=== PATIENT | female | born 1985 | race Caucasian/White ===

== ENCOUNTER 2018-03-20 02:15 | Emergency (ER) | payer OTHER ==
[2018-03-20 06:21] LABS: BASO % 0.3 % (0.0-1.0); EOS # 0.1 10^3/uL (0.0-0.50); EOS % 0.8 % (0.0-3.0); HEMATOCRIT 38.8 % (36.0-47.0); HEMOGLOBIN 12.9 g/dl (12.0-15.5); IMMATURE GRANULOCYTE % 0.3 % (0-3.0); LYMPH # 1.4 10^3/uL (1.5-4.5); LYMPH % 18.2 % (24.0-44.0); MEAN CORPUSCULAR HEMOGLOBIN 30.9 pg (27.0-33.0); MEAN CORPUSCULAR HGB CONC 33.2 g/dl (32.0-36.5); MEAN CORPUSCULAR VOLUME 92.8 fl (80.0-96.0); MONO # 0.4 10^3/uL (0.0-0.8); MONO % 5.6 % (0.0-5.0); NEUTROPHILS # 5.9 10^3/uL (1.8-7.7); NEUTROPHILS % 74.8 % (36.0-66.0); PLATELET COUNT, AUTOMATED 153 10^3/uL (150-450); RED BLOOD COUNT 4.18 10^6/uL (4.00-5.40); WHITE BLOOD COUNT 7.9 10^3/uL (4.0-10.0)
[2018-03-20] MEDS ORDERED: ISOVUE-370 76% 100ML VIAL (Q9967) As Ordered (06:29)
[2018-03-20 06:31] LABS: CONTROL LINE HCG INT CTR LINE PRESENT; HCG, SERUM QUALITATIVE NEGATIVE (NEGATIVE)
[2018-03-20 06:38] LABS: ALBUMIN 3.2 GM/DL (3.2-5.2); ALBUMIN/GLOBULIN RATIO 1.19 (1.00-1.93); ALKALINE PHOSPHATASE 65 U/L (45-117); ALT/SGPT 30 U/L (12-78); ANION GAP 9 MEQ/L (8-16); AST/SGOT 10 U/L (7-37); BILIRUBIN,DIRECT 0.2 MG/DL (0.0-0.2); BILIRUBIN,TOTAL 0.5 MG/DL (0.2-1.0); BLOOD UREA NITROGEN 13 MG/DL (7-18); CALCIUM LEVEL 7.9 MG/DL (8.5-10.1); CARBON DIOXIDE LEVEL 25 MEQ/L (21-32); CHLORIDE LEVEL 114 MEQ/L (98-107); CREATININE FOR GFR 0.59 MG/DL (0.55-1.30); GLOMERULAR FILTRATION RATE > 60.0 (>60); GLUCOSE, FASTING 90 MG/DL (70-100); LIPASE 70 U/L (73-393); POTASSIUM SERUM 3.6 MEQ/L (3.5-5.1); SODIUM LEVEL 148 MEQ/L (136-145); TOTAL PROTEIN 5.9 GM/DL (6.4-8.2)
== END 2018-03-20 08:38 | disposition home or self-care (01) ==
LOC: M ED 02:15
DX: T74.11XA Adult physical abuse, confirmed, initial encounter (principal); Y04.8XXA Assault by other bodily force, initial encounter; Y07.01 Husband, perpetrator of maltreatment and neglect; Y92.018 Other place in single-family (private) house as the place of occurrence of the external cause; Z91.048 Other nonmedicinal substance allergy status
CPT/HCPCS: Q9967

== ENCOUNTER 2019-08-30 15:41 | Outpatient (CLI) | payer OTHER, SELFPAY ==
[~2019-08-30] VITALS: Ht 167.6 cm; Wt 111.0 kg
[2019-08-30 16:07] VITALS: BP 131/70
[2019-08-30] MEDS ORDERED: IRON65TA2 PO (16:13)
[2019-08-30] MEDS ORDERED: AZIT500T5 PO (16:13)
[2019-08-30] MEDS ORDERED: PRENTAB9 PO ×2 (16:13)
[2019-08-30] MEDS ORDERED: COLA100C5 PO (16:13)
[2019-08-30] MEDS ORDERED: MAPA500T2 PO (16:13)
[2019-08-30] MEDS ORDERED: BETAMETHASONE SOLUSPAN 6MG/ML INJ 5ML (J0702) IM ONE (16:15)
--- NOTE | 2019-08-30 16:49 | IPNPDOC ---
Text Note Date of Service The patient was seen on 08/30/19. NOTE S: -Ms. Hutson is a 34yo at 36+5wks gestation with di-di twins who presents to LND triage for second betamethasone injection. She was seen in the clinic yesterday, [id number], for her APFT appointment and received her first dose then and was evaluated by the OB. -Today she reports +FM, intermittent mild contractions; she denies LOF/VB. -She is scheduled for COB on [id number] in the clinic O: VSS Doptones 140s for A and B A/P: -Normally progressing -Betamethasone complete with today's administration; pt tolerated well -appropriate 3rd trimester precautions reviewed -f/u [id number] or sooner PRN VS,Fishbone, I+O VS, Fishbone, I+O Vital Signs Date Time Temp Pulse Resp B/P (MAP) Pulse Ox O2 Delivery O2 Flow Rate FiO2 08/30/19 16:07 97.8 90 18 131/70 (90) RUBY CORREA CNM Aug 30, 2019 16:49
[2019-09-01] MEDS ORDERED: VITA500T PO (15:10)
[2019-09-01] MEDS ORDERED: PRED20TA PO (15:10)
== END 2019-08-30 16:49 | disposition home or self-care (01) ==
LOC: M LDO 15:41
PROVIDERS: ATTEND Registered Nurse Maternal Newborn
DX: O60.03 Preterm labor without delivery, third trimester (principal); O30.043 Twin pregnancy, dichorionic/diamniotic, third trimester; Z3A.36 36 weeks gestation of pregnancy
CPT/HCPCS: 59025; 96372; G0378; G0463; J0702

== ENCOUNTER 2019-09-02 16:01 | Outpatient (CLI) | payer SELFPAY ==
[~2019-09-02] VITALS: Ht 167.6 cm; Wt 114.1 kg
[~2019-09-02 16:01] MED LIST: AZIT500T5 PO; COLA100C5 PO; IRON65TA2 PO; MAPA500T2 PO; PRED20TA PO; PRENTAB9 PO; VITA500T PO
[2019-09-02 16:37] VITALS: BP 105/61
[2019-09-02] MEDS ORDERED: NON-325T5 PO (16:49)
[2019-09-02] MEDS ORDERED: TUMS500C PO (16:49)
[2019-09-02 17:35] LABS: HEMATOCRIT 33.6 % (36.0-47.0); HEMOGLOBIN 11.1 g/dl (12.0-15.5); MEAN CORPUSCULAR HEMOGLOBIN 32.3 pg (27.0-33.0); MEAN CORPUSCULAR VOLUME 97.7 fl (80.0-96.0); PLATELET COUNT, AUTOMATED 115 10^3/uL (150-450); RED BLOOD COUNT 3.44 10^6/uL (4.00-5.40); WHITE BLOOD COUNT 9.1 10^3/uL (4.0-10.0)
[2019-09-02 18:14] VITALS: BP 118/67
--- NOTE | 2019-09-03 07:42 | HPE ---
DATE OF ADMISSION: 09/02/2019 33-year-old, 5, para 2, abortus 2, last menstrual period (LMP) 12/16/2018, estimated date of confinement (EDC) 09/22/2019. She has a repeat section booked 09/11/2019. She is at 37 weeks of gestation with history contractions. No vaginal bleeding or loss of membranes or fluid. RISK FACTOR: She has had a (C) section times two, has Di/Di twins, a body mass index (BMI) of 29.9, gestational diabetes mellitus A1 (GDMA1), and thrombocytopenia presently on steroids 20 mg of prednisone a day. PAST HISTORY: In 2008, at 39 weeks, section elective, male, 7 pounds 9 ounces, persistent occiput posterior. 2011, at 39 weeks, section repeat, GDMA2, male, 7 pounds 12 ounces, multiple adhesions, and she has had two spontaneous abortions. Labs are O positive, HIV negative, RPR negative, rubella immune. Varicella immune. Pap is atypical squamous cells of undetermined significance (ASCUS), HPV negative. Urine is negative. Gonorrhea and chlamydia are negative. 1-hour glucose early was 118. 28 week GTT was 146. 3 hour GTT was not done. She has been checking her own blood sugars and she is group B streptococcus (GBS) negative. Blood pressure 118/67, respirations 18, pulse 77, temperature 99.1. Urine is 1.010, pH 7 and negative. Hemoglobin 11.1, hematocrit 37.6 and platelets are 115. On examination, symphysis fundus height is 44, vertex presenting twin A on the right, twin B on the left as vertex. She has peau d'orange in her abdomen because of the dependent edema. The incisional site is clean and dry and nontender. Her cervix is posterior, closed, ballotable, no discharge, no bleeding, thick. The patient is having uterine irritability secondary to Di/Di twins, category one strip times two and she was discharged with precautions. Scheduled to see Dr. Richardson next week.
== END 2019-09-02 18:35 | disposition home or self-care (01) ==
LOC: M LDO 16:01
PROVIDERS: ATTEND Obstetrics & Gynecology
DX: O26.893 Other specified pregnancy related conditions, third trimester (principal); O30.043 Twin pregnancy, dichorionic/diamniotic, third trimester; Z3A.37 37 weeks gestation of pregnancy
CPT/HCPCS: 36415; 59025; 85027; G0378; G0463

== ENCOUNTER 2019-09-08 06:52 | Inpatient (IN) | payer OTHER, SELFPAY ==
[~2019-09-08] VITALS: Ht 167.6 cm; Wt 112.4 kg
[~2019-09-08 06:52] MED LIST changes: +NON-325T5 PO; +TUMS500C PO
[2019-09-08] MEDS ORDERED: MORPHINE PRES-FREE INJ 10 MG/10 ML VIAL (J2274) As Ordered ONE (07:08)
[2019-09-08] MEDS ORDERED: OXYTOCIN INJ 10 UNITS/ML VIAL (J2590) As Ordered ONE (07:11)
[2019-09-08] MEDS ORDERED: ceFAZolin SOD 2 GM in IV 1 EA IV ONE (07:15)
[2019-09-08] MEDS ORDERED: LR 1,000 ML IV SCH (07:15)
[2019-09-08] MEDS ORDERED: BICITRA 30ML SOLN UDC As Ordered ONE (07:41)
[2019-09-08] MEDS ORDERED: BICITRA 30ML SOLN UDC PO ONE (08:00)
[2019-09-08] MEDS ORDERED: AZITHROMYCIN INJ 500 MG, VIAL MATE ADAPTER 1 EACH in D5W 250 ML IV ONE (08:00)
[2019-09-08 08:12] LABS: HEMATOCRIT 36.7 % (36.0-47.0); HEMOGLOBIN 11.9 g/dl (12.0-15.5); MEAN CORPUSCULAR HEMOGLOBIN 31.9 pg (27.0-33.0); MEAN CORPUSCULAR HGB CONC 32.4 g/dl (32.0-36.5); MEAN CORPUSCULAR VOLUME 98.4 fl (80.0-96.0); RED BLOOD COUNT 3.73 10^6/uL (4.00-5.40); WHITE BLOOD COUNT 9.4 10^3/uL (4.0-10.0)
[2019-09-08 08:17] LABS: PLATELET COUNT, AUTOMATED 97 10^3/uL (150-450)
[2019-09-08] MEDS ORDERED: METOCLOPRAMIDE INJ 10MG/2ML VIAL (J2765) IV PRN (08:52)
[2019-09-08] MEDS ORDERED: ONDANSETRON 4MG/2ML VIAL (J2405) IV PRN ×2 (08:52→10:30)
[2019-09-08] MEDS ORDERED: NALOXONE INJ 0.4 MG/1 ML VIAL (J2310) IV PRN ×2 (08:52)
[2019-09-08] MEDS ORDERED: diphenhydrAMINE INJ 50MG/ML VIAL (J1200) IV PRN (08:52)
[2019-09-08] MEDS ORDERED: NALBUPHINE HCL 10 MG/ML AMP (J2300) IV PRN ×2 (08:52→10:30)
[2019-09-08] MEDS: PRENATAL VITAMINS CHEWABLE TABLET PO SCH (09:00)
[2019-09-08] MEDS ORDERED: ePHEDrine SULFATE 25 MG/5 ML(5MG/ML) SYRINGE As Ordered ONE (09:01)
[2019-09-08] MEDS ORDERED: ONDANSETRON 4MG/2ML VIAL (J2405) As Ordered ONE (10:14)
[2019-09-08] MEDS ORDERED: PROMETHAZINE 25 MG TAB PO PRN (10:15)
[2019-09-08] MEDS ORDERED: MEASLES,MUMPS,RUBELLA VACCINE INJ (MMR-II) (90707) SC SCH (10:15)
[2019-09-08] MEDS ORDERED: PERCOCET 5MG/325MG TAB PO PRN (10:15)
[2019-09-08] MEDS ORDERED: RHOGAM 300 MCG (1500 IU) INJ (J2790) IM SCH (10:15)
[2019-09-08] MEDS ORDERED: OXYTOCIN 30 UNITS IN 0.9% NaCl 500ML IV BAG (J2590) As Ordered ONE (10:27)
[2019-09-08] MEDS ORDERED: KETOROLAC 30 MG/ML VIAL (J1885) IV PRN (10:30)
[2019-09-08] MEDS ORDERED: MEPERIDINE INJ 25 MG/ML VIAL (J2175) IV PRN (10:30)
[2019-09-08] MEDS ORDERED: fentaNYL 100 MCG/2 ML INJECTION (J3010) IV PRN (10:30)
[2019-09-08] MEDS ORDERED: oxyCODONE 5MG TAB PO PRN (10:30)
[2019-09-08] MEDS ORDERED: miSOPROStol 200 MCG TAB (S0191) As Ordered ONE ×4 (10:31→10:34)
[2019-09-08] MEDS ORDERED: OXYTOCIN DRIP 30 UNITS in IV 1 EA IV SCH (10:37)
--- NOTE | 2019-09-08 10:41 | IPNPDOC ---
Text Note Date of Service The patient was seen on 09/08/19. NOTE PACU Note I was asked to come juana Bustillo for some extra vaginal bleeding in PACU. She received a dose of methergine in the OR for prophylaxis since this was a twin delivery and she is currently receiving first bag of IV pitocin. Patient conversant, not pale Vitals wnl Bimanual exam revealed some clots within WON/vagina that were removed and massage was performed (patient still comfortable from spinal). Fundus firm at u- 2cm and no bleeding after exam was completed. 800mcg cytotec placed in the rectum. EBL in OR was 500ml. Maybe an extra 100ml after Will give 1 more bag of 30u pitocin IV Continue to closely monitor Dr. Cici Vasquez MD VS,Ashu, I+O VS, Ashu, I+O Laboratory Tests 09/08/19 07:41 Cici Vasquez MD Sep 08, 2019 10:41
[2019-09-08] MEDS ORDERED: miSOPROStol 200 MCG TAB (S0191) PR ONE (10:45)
[2019-09-08] MEDS ORDERED: SLF 3 ML SYR IV PRN (11:30)
[2019-09-08] MEDS: LR 1,000 ML IV SCH ×2 (11:43→17:52)
[2019-09-08 12:30] VITALS: BP 141/82
[2019-09-08] MEDS: KETOROLAC 30 MG/ML VIAL (J1885) IV SCH ×3 (12:45→23:44)
[2019-09-08 13:00] VITALS: BP 131/63
[2019-09-08 14:00] VITALS: BP 114/56
[2019-09-08 15:00] VITALS: BP 133/73
[2019-09-08] MEDS: SLF 3 ML SYR IV SCH ×2 (15:17→22:00)
[2019-09-08] MEDS ORDERED: LR 1,000 ML IV ONE (17:30)
[2019-09-08] MEDS: METHYLERGONOVINE MALEATE 0.2 MG TAB PO SCH ×2 (17:49→23:44)
[2019-09-08 18:00] VITALS: BP 121/64
--- NOTE | 2019-09-08 19:13 | RO ---
DATE OF PROCEDURE: 09/08/2019 PREPROCEDURE DIAGNOSES: 1. Di/Di twin gestation. 2. History of section times two and no desire for trial of labor after (TOLAC). 3. Obesity. POSTPROCEDURE DIAGNOSES: 1. Di/Di twin gestation. 2. History of section times two and no desire for trial of labor after (TOLAC). 3. Obesity. PROCEDURE: Repeat low transverse section. SURGEON: Dr. Gerry Richardson PAIL TESTER: Dr. Cici Vasquez ANESTHESIA: Spinal. FLUIDS: 1100 mL lactated Ringer's (LR). URINE OUTPUT: 100 mL. ESTIMATED BLOOD LOSS: 500 mL. COMPLICATIONS: None. ANTIBIOTICS: 2 grams of Ancef and 500 mg of azithromycin. OPERATIVE FINDINGS: Di/Di twin gestation, clear amniotic fluid in both sacs. Baby A cephalic presenting female that weighed 8 pounds 10 ounces. Baby B cephalic presenting male that weighed 8 pounds 0 ounces. Uterus was normal. Ovaries normal. Fallopian tubes normal bilaterally. DETAILED PROCEDURE DESCRIPTION: The risks, benefits, indications, and alternatives of the procedure were reviewed with the patient and informed consent was obtained. The patient was taken to the operating room where spinal anesthesia was obtained without difficulty. The patient was then prepped and draped in the usual sterile fashion in the dorsal supine position with a leftward tilt. A surgical time-out was performed in which the patient's identify and planned procedure were verified with the operative team. A Pfannenstiel skin incision was then made with a scalpel and carried through to the underlying layer of fascia using the Bovie electrocautery. The fascia was incised in the midline, and the incision was extended laterally with Reyna scissors. The superior aspect of the fascial incision was grasped with Nicolasa clamps, elevated, and the underlying rectus muscles were dissected off with a scalpel. Attention was then turned to the inferior aspect of this incision, which in a similar fashion, was grasped, tented up with Nicolasa clamps, and the rectus muscles were dissected off with Reyna scissors. The rectus muscles were then at the midline. The peritoneum was identified and entered digitally. The peritoneal incision was then extended horizontally and superiorly and the bladder was clearly identified. A Mobius self-containing retractor was then inserted into the abdomen as a means for exposure. The vesicouterine peritoneum was identified and entered sharply with a scalpel. This incision was then extended laterally, and a bladder flap was created digitally. Next, the lower uterine segment was incised in a transverse fashion with the scalpel. The uterine incision was then extended manually. Baby A's amniotic sac was artificially ruptured and this was productive of clear fluid. The was in cephalic presentation and the head was delivered without difficulty followed easily by the remainder of the body. The 's nose and mouth were suctioned with a bulb syringe and the cord was doubly clamped and cut. The was then handed off to the awaiting pediatricians. Next, Baby B's amniotic sac was identified and artificially ruptured, which was productive of clear fluid. Baby B was also found to be in cephalic presentation. Baby B was then delivered atraumatically through the hysterotomy without difficulty, followed easily by the remainder of the body. Baby B's nose and mouth were suctioned with a bulb syringe and the cord was doubly clamped and cut. Baby B was then handed off to the awaiting pediatricians. The entire placental complex, which was comprised of both placentas fused together, was then removed manually. The uterus was then exteriorized and cleared of all clots and debris. 0.2 mg of intramuscular (IM) Methergine was given prophylactically due to the extremely large uterus and risk for atony. The uterine incision was then repaired with #0 Monocryl suture in a running locked fashion. A second layer of #0 Monocryl was then used to imbricate the hysterotomy in a vertical fashion. Inspection revealed excellent hemostasis. The posterior cul-de-sac was then irrigated. The uterus was then returned to the abdomen. The hysterotomy was again inspected and found to be hemostatic. The paracolic gutters were then irrigated and cleared of all clots and debris. The Mobius self-containing retractor was then removed from the abdomen. The peritoneum was then closed with 3-0 vicryl suture. The fascia was closed with #0 Vicryl suture in a running fashion. The subcutaneous fat was closed with #3-0 Vicryl suture in a running fashion. The skin was closed with #4-0 Monocryl suture in a subcuticular fashion. The incision was then dressed with Steri-Strips and a pressure dressing was applied. At the completion of the case, a bimanual exam was performed which revealed good uterine tone and minimal vaginal bleeding. The patient tolerated the procedure well. Sponge, lap, instrument, and needle counts were correct times three. The patient was taken to the recovery room in stable condition. DENISE
[2019-09-08] MEDS: DOCUSATE SODIUM 100 MG CAP PO PRN (20:54)
[2019-09-08 22:11] VITALS: BP 123/61
[2019-09-09 02:15] VITALS: BP 104/55
[2019-09-09] MEDS: LR 1,000 ML IV SCH (02:30)
[2019-09-09] MEDS: METHYLERGONOVINE MALEATE 0.2 MG TAB PO SCH ×2 (05:43→12:31)
[2019-09-09] MEDS: KETOROLAC 30 MG/ML VIAL (J1885) IV SCH (06:20)
[2019-09-09] MEDS: SLF 3 ML SYR IV SCH ×3 (06:21→22:05)
[2019-09-09 06:46] VITALS: BP 115/60
[2019-09-09 07:09] LABS: HEMATOCRIT 32.1 % (36.0-47.0); HEMOGLOBIN 10.5 g/dl (12.0-15.5); MEAN CORPUSCULAR HEMOGLOBIN 32.2 pg (27.0-33.0); MEAN CORPUSCULAR HGB CONC 32.7 g/dl (32.0-36.5); MEAN CORPUSCULAR VOLUME 98.5 fl (80.0-96.0); RED BLOOD COUNT 3.26 10^6/uL (4.00-5.40); WHITE BLOOD COUNT 9.7 10^3/uL (4.0-10.0)
[2019-09-09 07:26] LABS: PLATELET COUNT, AUTOMATED 71 10^3/uL (150-450)
--- NOTE | 2019-09-09 09:25 | IPNPDOC ---
Progress Note Date of Service: Sep 09, 2019 Day#: 1 Progress Note POD/PPD 1 SUBJECT: Iwona is a 34yo [id number] s/p uncomplicated RLTCS on Sep for hx of 2 prior cesareans with di-di twins at 37w6d, doing well post-op day #1. She has been ambulating without lightheadedness, had heredia catheter removed this morning with due to void at 1030 and has been tolerating crackers so far without nausea/vomiting. Breast feeding without issue. Reports lochia is like a normal period. She denies f/c/CP/SOB. She has a slight cough from viral URI that she had when admitted, no worsening. OBJECTIVE: VITAL SIGNS: Within normal limits, afebrile. Alert and oriented times three. Abdomen: Fundus firm at U-2. Soft, appropriately tender to palpation with no rebound/guarding. Pfannenstiel incision has clean/dry dressing overlying. Extremities: no pain with palpation of calves UOP >50ml/hr Labs: admission H/H: 11.9/36.7, plt 97k post-op H/H 10.5/32.1, plt 71k ASSESSMENT: Iwona is a 34yo [id number] s/p uncomplicated RLTCS on Sep for hx of 2 prior cesareans with di-di twins at 37w6d, doing well post-op day #1. Vitals within normal limits, afebrile, hemodynamically stable with no evidence of infection. PLAN: 1. Routine /post-op care 2. Toradol (x24hr then ibuprofen) and percocet for pain. 3. Regular diet 4. Due to void by 1030 this morning 5. Ok to shower today and take off outer bandage 6. SCDs while in bed, encourage use of IS 7. Encourage breast feeding and ambulation. 8. Abdominal binder ordered 9. Repeat CBC tomorrow morning. If plt still downtrending, consider stopping ibuprofen and using alternate pain management. Dr. Cici Vasquez MD VS, I&O, 24H, Ashu Vital Signs/I&O Vital Signs Date Time Temp Pulse Resp B/P (MAP) Pulse Ox O2 Delivery O2 Flow Rate FiO2 09/09/19 06:46 98.2 73 17 115/60 (78) 97 1/7/20 02:15 Room Air I&O- Last 24 Hours up to 6 AM 09/09/19 06:00 Intake Total 6929 ml Output Total 3800 ml Balance 3129 ml Laboratory Data 24H LABS Laboratory Tests 2 09/09/19 06:48: Nucleated Red Blood Cells % (auto) 0.0 CBC/BMP Laboratory Tests 09/09/19 06:48 Cici Vasquez MD Sep 09, 2019 09:25
[2019-09-09] MEDS: PRENATAL VITAMINS CHEWABLE TABLET PO SCH (10:07)
[2019-09-09 10:25] VITALS: BP 131/76
[2019-09-09] MEDS ORDERED: IBUPROFEN 800 MG TAB PO SCH (14:00)
[2019-09-09 14:28] VITALS: BP 133/76
[2019-09-09 18:24] VITALS: BP 129/62
[2019-09-09] MEDS: DOCUSATE SODIUM 100 MG CAP PO PRN (20:10)
[2019-09-09 22:07] VITALS: BP 140/73
[2019-09-09] MEDS: PERCOCET 5MG/325MG TAB PO PRN (23:41)
[2019-09-10 03:14] VITALS: BP 135/69
[2019-09-10 05:56] VITALS: BP 132/81
[2019-09-10] MEDS: SLF 3 ML SYR IV SCH (06:25)
[2019-09-10 06:50] LABS: HEMATOCRIT 34.7 % (36.0-47.0); HEMOGLOBIN 11.1 g/dl (12.0-15.5); MEAN CORPUSCULAR HEMOGLOBIN 32.3 pg (27.0-33.0); MEAN CORPUSCULAR VOLUME 100.9 fl (80.0-96.0); RED BLOOD COUNT 3.44 10^6/uL (4.00-5.40); WHITE BLOOD COUNT 10.3 10^3/uL (4.0-10.0)
[2019-09-10 06:51] LABS: PLATELET COUNT, AUTOMATED 84 10^3/uL (150-450)
[2019-09-10] MEDS: PRENATAL VITAMINS CHEWABLE TABLET PO SCH (08:03)
[2019-09-10] MEDS: PERCOCET 5MG/325MG TAB PO PRN ×2 (08:04→12:40)
--- NOTE | 2019-09-10 08:33 | IPN ---
DATE: 09/10/2018 This lady is a 34 old, 3, para 4, who had a repeat section for di-di twins at 37 and 6 weeks of gestation. Risk factors is she has thrombocytopenia and she had an atonic uterus post section. On review today, her platelets have come up to 84. She originally had a platelet count of 97.0. Her hemoglobin on admission was 11.9, hematocrit 36.7. Her day two hemoglobin is 11.1 and hematocrit 34.7. Her blood pressure today is 132/81, respirations 16, pulse 81, and temperature 99.0. She is presently not on steroids and her platelets have spontaneously elevated to almost levels that she had pre- section. She is not bleeding at the present time. Uterus is two below. Lochia is moderate. Four quadrant bowel sounds are noted. Her medication list includes ibuprofen and probably removing ibuprofen from her profile list would be appropriate and use an alternative medications for pain control. She is breast-feeding well today and we will await the finalized repeat CBC with platelets before making decision regarding discharge and/or a consultation with hematology.
[2019-09-10 10:35] VITALS: BP 123/81
[2019-09-10] MEDS ORDERED: PERCOCET PO (11:28)
--- NOTE | 2019-09-11 15:09 | IPN ---
DATE OF SERVICE: 09/09/2019 This patient has requested circumcision of their male . After discussing risks and benefits of circumcision the medical and nonmedical indications, penile block and aftercare expressed understanding of penile block and aftercare and bleeding, signed the consent form. All questions were answered. 20-minute discussion. We await the clearance by the six pack loader operator.
== END 2019-09-10 13:45 | disposition home or self-care (01) | DRG 772 ==
LOC: M LDI 06:52 → M OBS 12:22
PROVIDERS: ADMIT Obstetrics & Gynecology; ATTEND Obstetrics & Gynecology
PROC: 10D00Z1 Extraction of Products of Conception, Low, Open Approach (ICD-10-PCS; principal; 2019-09-08 07:30)
DX: O34.211 Maternal care for low transverse scar from previous cesarean delivery (principal); O99.13 Other diseases of the blood and blood-forming organs and certain disorders involving the immune mechanism complicating the puerperium; Z3A.37 37 weeks gestation of pregnancy; Z37.2 Twins, both liveborn; O30.043 Twin pregnancy, dichorionic/diamniotic, third trimester; O99.214 Obesity complicating childbirth; E66.9 Obesity, unspecified; D69.6 Thrombocytopenia, unspecified; O62.2 Other uterine inertia

== ENCOUNTER → 2019-09-25 | Outpatient (CLI) | payer OTHER ==
[~2019-09-25] MED LIST changes: +PERCOCET PO
[2019-09-25 12:54] LABS: HEMATOCRIT 42.2 % (36.0-47.0); HEMOGLOBIN 13.5 g/dl (12.0-15.5); MEAN CORPUSCULAR HEMOGLOBIN 31.3 pg (27.0-33.0); MEAN CORPUSCULAR VOLUME 97.9 fl (80.0-96.0); PLATELET COUNT, AUTOMATED 167 10^3/uL (150-450); RED BLOOD COUNT 4.31 10^6/uL (4.00-5.40); WHITE BLOOD COUNT 7.3 10^3/uL (4.0-10.0)
[2019-09-25 13:28] LABS: ALBUMIN 3.5 GM/DL (3.2-5.2); ALT/SGPT 19 U/L (12-78); BILIRUBIN,TOTAL 0.8 MG/DL (0.2-1.0); BLOOD UREA NITROGEN 18 MG/DL (7-18); CALCIUM LEVEL 8.6 MG/DL (8.5-10.1); CARBON DIOXIDE LEVEL 24 MEQ/L (21-32); CHLORIDE LEVEL 109 MEQ/L (98-107); CREATININE FOR GFR 0.68 MG/DL (0.55-1.30); GLOMERULAR FILTRATION RATE > 60.0 (>60); GLUCOSE, FASTING 67 MG/DL (70-100); POTASSIUM SERUM 4.1 MEQ/L (3.5-5.1); SODIUM LEVEL 141 MEQ/L (136-145); TOTAL PROTEIN 6.8 GM/DL (6.4-8.2)
== END ==
LOC: M LAB 11:53
PROVIDERS: ATTEND Obstetrics & Gynecology
DX: Z13.89 Encounter for screening for other disorder (principal)

== ENCOUNTER 2020-12-19 17:24 | Inpatient (IN) | payer OTHER ==
[~2020-12-19] VITALS: Ht 167.6 cm; Wt 117.3 kg
[~2020-12-19 17:24] MED LIST changes: +ACET32TAB PO; +CLAR10CA3 PO; -NON-325T5 PO; +VITA-243 PO; -VITA500T PO
--- NOTE | 2020-12-19 17:39 | HPEPDOC ---
Obstetrical History & Physical General Date of Admission History of Present Illness Ms. Hutson is a 35yo at 39+3 with history of CD x3 presenting to triage with contractions, she was also noted to have mild range blood pressures. She desires repeat . Denied VB, LOF, decreased FM. Denied n/v/d, cp, sob, lee, visual changes, f/c, urinary sx. Antepartum Course Pre- weight (lbs.): 237 Admission Weight (lbs.): 253 Change in Weight (lbs.): 16 Past Medical History Past Obstetrical History : Past Obstetrical History: Multigravida (G1 2008 PLTCD 39wk failure to progress. G2 2011 RCD 39wk. G3 2019 RCD twins gestational thrombocytopenia. + SAB x3) Past Medical History Medical History obesity Surgical History: section (x3), Gallbladder Social History Marital Status: Family situation: Spouse/partner home * Smoker: non-smoker Alcohol: Denies Drugs: denies Imunizations Tdap status: current Influenza Status: declined Allergies Coded Allergies: Cat Dander (Verified Allergy, Intermediate, 12/14/20) NASAL CONGESTION nickel (Verified Allergy, Intermediate, RASH, 12/14/20) SKIN BREAKDOWN gluten (Verified Adverse Reaction, Mild, INTOLERANCE, 12/14/20) RASH Medications Scheduled Docusate Sodium (Colace) 100 Mg Capsule, 100 MG PO BID No.137/Iron/Folic Acd ( Vitamin Tablet) 1 Each Tablet, 1 TAB PO TID Scheduled PRN Acetaminophen (Acetaminophen) 325 Mg Tablet, 1-2 TABS PO Q6HP PRN for DISCOMFORT Calcium Carbonate (Antacid) 200 Mg Tab.chew, 500 MG PO PRN PRN for HEARTBURN/INDIGESTION Loratadine (Claritin) 10 Mg Capsule, 10 MG PO DAILYPRN PRN for CONGESTION Physical Examination Physical Examination GENERAL: Alert and oriented times three. BREAST: . ABDOMEN: Gravid and non-tender to touch. FETUS: Is vertex (VTX) by sterile vaginal examination (SVE), fetus is vertex (VTX) by Rahat. HEART RATE: Regular rate and rhythm. LUNGS: Clear to auscultation (CTA). EXTREMITIES: No edema. No clonus. Deep tendon reflexes (DTRs) + . Laboratory Data Urine Culture: No Growth Pertinent Laboratoy Data Blood Type: O+ RBC Antibody Screen: Negative HIV: Negative Hepatitis B: Negative Rapid Plasma Reagin: Nonreactive Rubella: Immune Varicella: Immune Chlamydia/Gonorrhea: Negative Group B Streptococcus: Negative Quad Screen Test: Negative (cfDNA) Anatomy Ultrasound Placenta Location: Anterior Normal Anatomy: Yes Vaginal Examination Dilation: Fingertip Station: -3 Cervical Consistency: Firm Cervical Position: Posterior Presentation: Cephalic presentation Assessment Heart Rate (FHR): 130 Variability: Moderate Accelerations: Positive Tocometer Contractions: Yes Frequency: irregular Multi-drug resistant Organism: No history of MDRO Assessment/Plan Assessment Ms. Hutson is a 35yo at 39+3 with history of CD x3 presenting to triage with contractions, she was also noted to have mild range blood pressures. Pre-eclampsia labs are pending and she has no symptoms of pre-eclampsia. CAT I tracing reactive. Regular contractions on toco. SVE FT/T/H. Decision was made to proceed with when patient is appropriately NPO given her painful contractions and her elevated BPs, she last at at 1400. APC 1. obesity, pre- BMI 38, 16# gain 2. close interval , twins SEP 2019 3. gestational thrombocytopenia, last PLT 106 4. history of x3, desires repeat 5. likely GHTN, tox labs ordered on admit Rh pos, GBS neg, ceph by US, EFW 3400, placenta anterior - Admit: to L+D for RCD, will proceed with appropriately NPO - ABX PPX: 2g ancef - DVT PPX: SCDs, early ambulation - GI PPX: bicitra - Anesthesia: consulted, requested epidural/CSE given extensive surgical history - Consent: Counseled on the risks of and written consent obtained - Diet: NPO - last ate 1400 - Monitoring: continuous until procedure CHRISTOPHER TERRY DO Dec 19, 2020 17:39
[2020-12-19] MEDS ORDERED: CALC500C15 PO (17:43)
[2020-12-19 17:55] VITALS: BP 143/72
[2020-12-19 18:05] VITALS: BP 140/78
[2020-12-19] MEDS ORDERED: OXYTOCIN DRIP 30 UNITS in IV 1 EA IV PRN (18:35)
[2020-12-19] MEDS ORDERED: ceFAZolin SOD 2 GM in IV 1 EA IV ONE (18:35)
[2020-12-19] MEDS ORDERED: BICITRA 30ML SOLN UDC PO ONE (18:35)
[2020-12-19] MEDS ORDERED: BUPIVACAINE HCL 0.25% 10ML VIAL SC SCH (18:35)
[2020-12-19 19:24] VITALS: BP 139/71
[2020-12-19 19:29] VITALS: BP 130/65
[2020-12-19 19:38] LABS: ALT/SGPT 14 U/L (12-78); BILIRUBIN,TOTAL 0.5 MG/DL (0.2-1.0); CREATININE FOR GFR 0.45 MG/DL (0.55-1.30); GLOMERULAR FILTRATION RATE > 60.0 (>60); LDH LACTATE DEHYDROGENASE 147 U/L (84-246); URIC ACID 3.2 MG/DL (2.6-6.0)
[2020-12-19 19:47] LABS: HEMATOCRIT 37.7 % (36.0-47.0); HEMOGLOBIN 12.2 g/dl (12.0-15.5); MEAN CORPUSCULAR HEMOGLOBIN 30.7 pg (27.0-33.0); MEAN CORPUSCULAR HGB CONC 32.4 g/dl (32.0-36.5); MEAN CORPUSCULAR VOLUME 94.7 fl (80.0-96.0); PLATELET COUNT, AUTOMATED 103 10^3/uL (150-450); RED BLOOD COUNT 3.98 10^6/uL (4.00-5.40)
[2020-12-19] MEDS ORDERED: MORPHINE PRES-FREE INJ 10 MG/10 ML VIAL (J2274) As Ordered ONE (19:55)
[2020-12-19] MEDS ORDERED: OXYTOCIN INJ 10 UNITS/ML VIAL (J2590) As Ordered ONE (19:57)
[2020-12-19] MEDS ORDERED: LIDOCAINE 2% W/EPINEPHRINE 20ML VIAL **PRES FREE As Ordered ONE (20:05)
[2020-12-19] MEDS ORDERED: diphenhydrAMINE 50MG/ML VIAL (J1200) IV PRN (20:25)
[2020-12-19] MEDS ORDERED: METOCLOPRAMIDE INJ 10MG/2ML VIAL (J2765 PER 1) IV PRN (20:25)
[2020-12-19] MEDS ORDERED: NALOXONE INJ 0.4MG/1ML VIAL (J2310 PER 1MG) IV PRN ×2 (20:25)
[2020-12-19] MEDS ORDERED: NALBUPHINE HCL 10 MG/ML AMP (J2300) IV PRN (20:25)
[2020-12-19] MEDS ORDERED: ONDANSETRON 4MG/2ML VIAL IV PRN ×2 (20:25→21:45)
[2020-12-19] MEDS ORDERED: BUPIVACAINE/DEXTROSE 0.75% 2 ML AMP As Ordered ONE (20:40)
[2020-12-19] MEDS ORDERED: PHENYLephrine 500MCG 5ML (100MCG/ML) SYRINGE As Ordered ONE (20:48)
[2020-12-19] MEDS ORDERED: ePHEDrine SULFATE 25 MG/5 ML(5MG/ML) SYRINGE As Ordered ONE (20:48)
[2020-12-19] MEDS ORDERED: dexameTHASONE 4 MG/ML 1ML VIAL (J1100 PER 1MG) As Ordered ONE (20:55)
[2020-12-19] MEDS ORDERED: ONDANSETRON 4MG/2ML VIAL As Ordered ONE (20:55)
[2020-12-19 21:19] LABS: CORD GAS O2 SAT V 88.6 %; CORD GAS PCO2 V 45.3 mmHg; CORD GAS PH V 7.342 UNITS; CORD GAS PO2 V 46.6 mmHg; CORD GAS SBC V 22.6 MEQ/L; CORD GAS TCO2 V 25.4 MEQ/L
[2020-12-19 21:20] LABS: CORD GAS ABE A -4.9; CORD GAS HCO3 A 23.4 MEQ/L; CORD GAS O2 SAT A 50.4 %; CORD GAS PCO2 A 57.4 mmHg; CORD GAS PH A 7.228 UNITS; CORD GAS PO2 A 25.8 mmHg; CORD GAS SBC A 19.4 MEQ/L; CORD GAS TCO2 A 25.2 MEQ/L
[2020-12-19] MEDS ORDERED: METOCLOPRAMIDE INJ 10MG/2ML VIAL (J2765 PER 1) As Ordered ONE (21:24)
[2020-12-19] MEDS ORDERED: KETOROLAC 60MG 2ML VIAL As Ordered ONE (21:40)
[2020-12-19] MEDS ORDERED: fentaNYL 100 MCG/2 ML INJECTION (J3010) IV PRN (21:45)
[2020-12-19] MEDS ORDERED: oxyCODONE 5MG TAB PO PRN ×3 (21:45→22:15)
--- NOTE | 2020-12-19 22:12 | ROOPDOC ---
[facility] Report Of Operation Report of Operation DATE OF PROCEDURE: 12/19/20 PREPROCEDURE DIAGNOSES: history of delivery, gestational hypertension POSTPROCEDURE DIAGNOSES: same + uterine window PROCEDURE: repeat delivery SURGEON: Albino Terry DO CONE WORKER: Josey Kim MD ANESTHESIA: combined spinal epidural ESTIMATED BLOOD LOSS: Approximately 600 mL. COMPLICATIONS: none REMARKS: none PROCEDURE NOTE: Ms. Hutson is a 35yo at 39+3 with history of CD x3 presenting to triage with contractions, she was also noted to have mild range blood pressures and was diagnosed with gestational hypertension. Decision was made to proceed with repeat delivery. 2g of ancef and bicitra were administered pre- operatively. The risks, benefits, and alternatives of the procedure were discussed and written consent was obtained. The patient was taken to the OR where she was given a combined spinal epidural. She was positioned supine with her arms out and a left tilt. A heredia was placed in the bladder. The abdomen was prepped and draped in a sterile fashion. The anesthesia was tested to be adequate. A final time out was performed. A scalpel was used to incise through the existing Pfannenstiel scar. The incision was carried to the fascia which was then scored. The curved walters scissors were used to extend the fascial incision in a curvilinear fashion. The superior fascial edge was grasped with the koker clamps and the muscle dissected from the fascia with the scalpel and blunt dissection. The same procedure was repeated on the inferior fascial edge. The muscles were bluntly and the peritoneum entered bluntly. The lower uterine segment was identified and the bladder blade was placed. An exceedingly thin portion of the lower uterine segment was noted representing a uterine window. The bladder reflection was elevated and a bladder flap was made with the metzaumbaum scissors and blunt dissection. The bladder blade was replaced. A transverse incision was made in the lower uterine segment and extended bluntly. The amniotic sac was then ruptured bluntly and the fluid was clear. The head was then elevated to the hysterotomy and the bladder blade removed. With the assistance of abdominal pressure the baby was delivered and had spontaneous movement and cry. The baby was then handed to the pediatrics team. The cord was clamped x2 and cut. Cord blood and gasses were obtained. The placenta was then delivered via manual extraction and was in-tact. The uterus was exteriorized and debris swept from inside with a moist lap. The hysterotomy was then closed with 0-monocryl in a running locking fashion. A horizontal imbricating layer was then made with 0-monocryl. Two additional figure of 8 stitches were required for hemostasis. The uterus was firm. Pool suction and a moist lap were used to clean the posterior cul-de-sac. The ovaries and fallopian tubes appeared normal. The uterus was replaced. The gutters were then cleaned with a moist lap. The hysterotomy was re-inspected off tension and remained hemostatic. The muscles and fascia were inspected and were hemostatic. The fascia was then reapproximated with 0-PDS in a running fashion. It was palpated to have no defects on completion. The subcutaneous tissue was then i rrigated. 0.25% marcaine was injected at the level of the fascia. It was reapproximated with 2-0 vicryl in 2 running layers. The skin was then closed with 3-0 monocryl in a running fashion. Steri sterips and optifoam were used to dress the incision. The sponge, lap, and needle counts were correct x2. There were no complications. The patient tolerated the procedure well. I DO NOT RECOMMEND THIS PATIENT ATTEMPT A TRIAL OF LABOR IN THE FUTURE. ALBINO TERRY DO Dec 19, 2020 22:12
[2020-12-19] MEDS ORDERED: DOCUSATE SODIUM 100MG CAPSULE PO PRN (22:15)
[2020-12-19] MEDS ORDERED: MOM 30ML SUSPENSION UDC PO PRN (22:15)
[2020-12-19] MEDS ORDERED: ACETAMINOPHEN TAB 650MG DOSE (2X325MG) PO PRN (22:15)
[2020-12-19] MEDS ORDERED: SIMETHICONE 80MG CHEW TAB PO PRN (22:15)
[2020-12-19 23:40] VITALS: BP 133/61
[2020-12-20] VITALS (8 sets, daily range): BP systolic 103–125; BP diastolic 55–62
--- NOTE | 2020-12-20 06:50 | IPNPDOC ---
Progress Note Date of Service: Dec 20, 2020 Day#: 1 Progress Note SUBJECT: Ms. Hutson is a 35yo POD1 s/p RCD at 39+3 after presenting with regular painful contractions, she was also noted to have mild range blood pressures and was diagnosed with gestational hypertension. EBL 600, 8/9, 9#1, 4110g. Patient has not yet ambulated. She is tolerating water. She had crackers earlier in the evening. She has vomited twice since delivery. Her heredia is in place. She has not yet passed flatus. She denied significnat pain. She is without issue. She denied diarrhea, cp, sob, lee, visual changes, f/c. APC 1. obesity, pre- BMI 38, 16# gain 2. close interval , twins SEP 2019 3. gestational thrombocytopenia, last PLT 106 4. history of x3, desires repeat 5. GHTN, tox labs normal - still need P:C OBJECTIVE: VITAL SIGNS: Within normal limits, afebrile. Alert and oriented times three. No increased WOB Heart rate: non-tachycardic Abdomen: Fundus firm at U-2. Soft, NTTP. Pfannensteil incision is covered with optifoam dressing with minimal strikethrough Minimal lochia per pt ASSESSMENT: Ms. Hutson is a 35yo POD1 s/p RCD at 39+3 after presenting with regular painful contractions, she was also noted to have mild range blood pressures and was diagnosed with gestational hypertension. EBL 600, 8/9, 9#1, 4110g. Vitals within normal limits at this time, afebrile, hemodynamically stable with no evidence of infection. She did have some mild range BPs and some non-sustained severe range BPs in recovery but this has resolved. She has no symptoms of pre-eclampsia. PLAN: 1. Discharge likely POD2 2. Tylenol and oxyIR for pain, patient declined ibuprofen 3. Encourage breast feeding and ambulation. 4. Vasectomy is planned for contraception 5. Routine PP visit in 2 and 6 weeks in clinic. BP check 48h after discharge. 6. Discussed return precautions and post-operative activity limitations at length. 7. Follow up on POD1 CBC and P:C Hans VS, I&O, 24H, Fishbone Vital Signs/I&O Vital Signs Date Time Temp Pulse Resp B/P (MAP) Pulse Ox O2 Delivery O2 Flow Rate FiO2 12/20/20 06:00 97.4 73 16 103/55 (71) 98 Room Air I&O- Last 24 Hours up to 6 AM 12/20/20 06:00 Intake Total 200 ml Output Total 850 ml Balance -650 ml Laboratory Data 24H LABS Laboratory Tests 2 12/19/20 18:35: Glomerular Filtration Rate > 60.0, Uric Acid 3.2, Total Bilirubin 0.5, Aspartate Amino Transf (AST/SGOT) 12, Alanine Aminotransferase (ALT/SGPT) 14, Lactate Dehydrogenase 147 12/19/20 18:55: Nucleated Red Blood Cells % (auto) 0.0 12/19/20 19:17: Serology Scanned Report Hepatitis B Testing 12/19/20 20:58: Cord Arterial Blood pH 7.228, Cord Arterial Blood PCO2 57.4, Cord Arterial Blood PO2 25.8, Cord Arterial Blood HCO3 23.4, Cord Arterial Blood Total CO2 25.2, Cord Arterial Blood Base Excess -4.9, Cord Arterial Base Excess (Standard 19.4, Cord Arterial Bld Oxygen Saturation 50.4, Cord Venous Blood pH 7.342, Cord Venous Blood PCO2 45.3, Cord Venous Blood PO2 46.6, Cord Venous Blood HCO3 24.0, Cord Venous Blood Total CO2 25.4, Cord Venous Base Excess (Actual) -2.0, Cord Venous Base Excess (Standard) 22.6, Cord Venous Blood Oxygen Saturation 88.6 CBC/BMP Laboratory Tests 12/19/20 18:35 12/19/20 18:55 CHRISTOPHER TERRY DO Dec 20, 2020 06:50
--- NOTE | 2020-12-20 07:06 | OBDS ---
[facility] Obstetrical Discharge Sum. A/P, Post Course List any complications Ms. Hutson is a 35yo who had a repeat at 39+3 after presenting with regular painful contractions, she was also noted to have mild range blood pressures and was diagnosed with gestational hypertension. EBL 600, 8/9, 9#1, 4110g. On dischagre she was ambulating, urinating, and tolerating solids without difficulty. She was passing flatus. She was without issue and her pain was well controlled. APC 1. obesity, pre- BMI 38, 16# gain 2. close interval , twin delivery SEP 2019 3. gestational thrombocytopenia 4. history of x3, desires repeat 5. Gestational hypertension, pre-eclampsia labs normal PLAN: 1. Discharge to home 2. Tylenol and oxyIR for pain, patient declined ibuprofen. 3. Encouraged breast feeding and ambulation. 4. Vasectomy is planned for contraception. 5. Routine postprtum visit in 2 and 6 weeks in clinic. Blood pressure check 48h after discharge. 6. Discussed return precautions and post-operative activity limitations at length. 7. Discussed symptoms of pre-eclampsia as return precautions. CHRISTOPHER TERRY DO Dec 20, 2020 07:06 SHOSHANA CALIX DO Dec 21, 2020 07:17
[2020-12-20 08:31] LABS: HEMATOCRIT 32.2 % (36.0-47.0); HEMOGLOBIN 10.5 g/dl (12.0-15.5); MEAN CORPUSCULAR HEMOGLOBIN 30.9 pg (27.0-33.0); MEAN CORPUSCULAR HGB CONC 32.6 g/dl (32.0-36.5); MEAN CORPUSCULAR VOLUME 94.7 fl (80.0-96.0); WHITE BLOOD COUNT 12.7 10^3/uL (4.0-10.0)
[2020-12-20] MEDS: PRENATAL VITAMINS CHEWABLE TABLET PO SCH (08:32)
[2020-12-20 08:40] LABS: PLATELET COUNT, AUTOMATED 96 10^3/uL (150-450)
[2020-12-20 09:13] LABS: AMORPHOUS SEDIMENT SMALL (NEGATIVE); APPEARANCE, URINE TURBID (CLEAR); BACTERIA, URINE AUTO NEGATIVE (NEGATIVE); BILIRUBIN, URINE AUTO NEGATIVE (NEGATIVE); BLOOD, URINE BLOOD 1+ (NEGATIVE); COLOR, URINE YELLOW (YELLOW); GLUCOSE, URINE (UA) AUTO NEGATIVE (NEGATIVE); KETONE, URINE AUTO TRACE mg/dL (NEGATIVE); LEUKOCYTE ESTERASE, URINE AUTO NEGATIVE (NEGATIVE); MUCUS, URINE LARGE (NEGATIVE); NITRITE, URINE AUTO NEGATIVE (NEGATIVE); PROTEIN, URINE AUTO 2+ mg/dL (NEGATIVE); RBC, URINE AUTO 39 /HPF (0-3); SPECIFIC GRAVITY URINE AUTO 1.025 (1.002-1.035); SQUAMOUS EPITHELIAL CELL UR AU 3 /HPF (0-6); UROBILINOGEN, URINE AUTO 0.2 mg/dL (0.0-2.0); WBC, URINE AUTO 9 /HPF (0-3)
[2020-12-20 09:50] LABS: TOTAL PROTEIN,RANDOM URINE 43.7 MG/DL (0.0-12.0)
[2020-12-20] MEDS: ACETAMINOPHEN 500 MG TAB PO PRN ×2 (16:51→23:03)
[2020-12-21 02:00] VITALS: BP 113/59
[2020-12-21 06:00] VITALS: BP 124/60
[2020-12-21] MEDS: ACETAMINOPHEN 500 MG TAB PO PRN (07:32)
[2020-12-21] MEDS: PRENATAL VITAMINS CHEWABLE TABLET PO SCH (07:32)
[2020-12-21 07:36] LABS: HEMATOCRIT 32.6 % (36.0-47.0); HEMOGLOBIN 10.6 g/dl (12.0-15.5); MEAN CORPUSCULAR HGB CONC 32.5 g/dl (32.0-36.5); MEAN CORPUSCULAR VOLUME 95.3 fl (80.0-96.0); RED BLOOD COUNT 3.42 10^6/uL (4.00-5.40); WHITE BLOOD COUNT 8.6 10^3/uL (4.0-10.0)
[2020-12-21 07:41] LABS: PLATELET COUNT, AUTOMATED 87 10^3/uL (150-450)
[2020-12-21 10:00] VITALS: BP 132/76
== END 2020-12-21 12:45 | disposition home or self-care (01) | DRG 772 ==
LOC: M LDO 17:24 → M LDI 19:09 → M OBS 23:30
PROVIDERS: ADMIT Obstetrics & Gynecology; ATTEND Obstetrics & Gynecology
PROC: 10D00Z1 Extraction of Products of Conception, Low, Open Approach (ICD-10-PCS; principal; 2020-12-19 19:23)
DX: O34.211 Maternal care for low transverse scar from previous cesarean delivery (principal); K90.41 Non-celiac gluten sensitivity; O99.12 Other diseases of the blood and blood-forming organs and certain disorders involving the immune mechanism complicating childbirth; Z37.0 Single live birth; Z3A.39 39 weeks gestation of pregnancy; O99.62 Diseases of the digestive system complicating childbirth; E66.9 Obesity, unspecified; O99.214 Obesity complicating childbirth; Z68.38 Body mass index [BMI] 38.0-38.9, adult; D69.6 Thrombocytopenia, unspecified; O13.4 Gestational [pregnancy-induced] hypertension without significant proteinuria, complicating childbirth

== ENCOUNTER → 2021-08-15 | Outpatient (CLI) | payer OTHER ==
[~2021-08-15] MED LIST changes: +CALC500C15 PO
== END ==
LOC: M LAB 10:59
PROVIDERS: ATTEND Allergy & Immunology Allergy
DX: T78.1XXA Other adverse food reactions, not elsewhere classified, initial encounter (principal); Y92.89 Other specified places as the place of occurrence of the external cause

== ENCOUNTER 2022-10-02 05:00 | Inpatient (IN) | payer OTHER ==
[~2022-10-02] VITALS: Ht 167.6 cm; Wt 122.0 kg
[2022-10-02] VITALS (12 sets, daily range): BP systolic 115–148; BP diastolic 62–81
[~2022-10-02 05:00] MED LIST changes: +BAYE81TA10 PO; +[UNRECOGNIZED DRUG - OTHER] PO
[2022-10-02] MEDS ORDERED: LR 1,000 ML IV ONE (05:25)
[2022-10-02] MEDS ORDERED: LR 1,000 ML IV SCH ×4 (05:25→09:45)
[2022-10-02] MEDS ORDERED: ceFAZolin SOD 2 GM in IV 1 EA IV ONE ×2 (05:25→05:50)
[2022-10-02] MEDS ORDERED: HOME MED LIST COMPLETE! XX SCH (05:35)
[2022-10-02] MEDS ORDERED: BICITRA 30ML SOLN UDC PO ONE (05:50)
[2022-10-02] MEDS ORDERED: LACTATED RINGER'S 1000 ML IV ONE (05:50)
[2022-10-02 05:57] LABS: HEMATOCRIT 35.3 % (36.0-47.0); HEMOGLOBIN 11.8 g/dl (12.0-15.5); MEAN CORPUSCULAR HEMOGLOBIN 31.2 pg (27.0-33.0); MEAN CORPUSCULAR HGB CONC 33.4 g/dl (32.0-36.5); MEAN CORPUSCULAR VOLUME 93.4 fl (80.0-96.0); RED BLOOD COUNT 3.78 10^6/uL (4.00-5.40); WHITE BLOOD COUNT 9.6 10^3/uL (4.0-10.0)
[2022-10-02 05:59] LABS: PLATELET COUNT, AUTOMATED 98 10^3/uL (150-450)
[2022-10-02] MEDS ORDERED: MORPHINE PRES-FREE INJ 10 MG/10 ML VIAL As Ordered ONE (07:13)
[2022-10-02] MEDS ORDERED: OXYTOCIN 30UNITS IN 0.9% NaCl 500ML IV BAG As Ordered ONE ×2 (07:14→09:35)
[2022-10-02] MEDS ORDERED: BUPIVACAINE HCL 0.25% 30ML VIAL SC ONE (07:45)
[2022-10-02] MEDS ORDERED: ONDANSETRON 4MG 2ML VIAL As Ordered ONE (08:14)
[2022-10-02] MEDS ORDERED: KETOROLAC 60MG 2ML VIAL As Ordered ONE (08:14)
[2022-10-02] MEDS ORDERED: PHENYLephrine 500MCG 5ML (100MCG/ML) SYRINGE As Ordered ONE (08:14)
[2022-10-02] MEDS ORDERED: ACETAMINOPHEN 1000MG 100ML IV BAG As Ordered ONE (08:37)
[2022-10-02] MEDS ORDERED: METOCLOPRAMIDE INJ 10MG/2ML VIAL As Ordered ONE (08:40)
[2022-10-02] MEDS: FAMOTIDINE 20 MG TAB PO SCH ×2 (09:00→20:26)
[2022-10-02] MEDS ORDERED: oxyCODONE 5MG TAB PO PRN ×3 (09:25→09:45)
[2022-10-02] MEDS ORDERED: MORPHINE 2 MG/ML 1ML VIAL IV PRN (09:25)
[2022-10-02] MEDS ORDERED: OXYTOCIN DRIP 30 UNITS in IV 1 EA IV SCH (09:25)
[2022-10-02] MEDS ORDERED: RHOGAM 300MCG (1500IU) INJ IM SCH (09:25)
[2022-10-02] MEDS ORDERED: ANUSOL HC CREAM 30GM TOP PRN (09:25)
[2022-10-02] MEDS ORDERED: NALOXONE INJ 0.4MG/1ML VIAL IV PRN ×2 (09:45)
[2022-10-02] MEDS ORDERED: SLF 3 ML SYR IV SCH (09:45)
[2022-10-02] MEDS ORDERED: METOCLOPRAMIDE INJ 10MG/2ML VIAL IV PRN (09:45)
[2022-10-02] MEDS ORDERED: **NOTE PATIENT COMMENT** MISC XX SCH (09:45)
[2022-10-02] MEDS ORDERED: ONDANSETRON 4MG 2ML VIAL IV PRN (09:45)
[2022-10-02] MEDS ORDERED: diphenhydrAMINE 50MG/ML VIAL IV PRN (09:45)
[2022-10-02] MEDS ORDERED: fentaNYL 100 MCG/2 ML INJECTION IV PRN (09:45)
[2022-10-02] MEDS: ONDANSETRON 4MG 2ML VIAL IV PRN ×2 (11:57→18:24)
[2022-10-02] MEDS: KETOROLAC 30 MG/ML 1ML VIAL IV SCH ×2 (15:23→20:27)
[2022-10-02] MEDS ORDERED: LR 500 ML IV ONE ×2 (15:30→17:15)
[2022-10-02] MEDS: DOCUSATE SODIUM 100MG CAPSULE PO SCH (20:26)
[2022-10-03 02:00] VITALS: BP 115/57
[2022-10-03] MEDS: KETOROLAC 30 MG/ML 1ML VIAL IV SCH (03:03)
[2022-10-03 06:12] LABS: HEMATOCRIT 29.8 % (36.0-47.0); HEMOGLOBIN 9.9 g/dl (12.0-15.5); MEAN CORPUSCULAR HEMOGLOBIN 31.6 pg (27.0-33.0); MEAN CORPUSCULAR HGB CONC 33.2 g/dl (32.0-36.5); MEAN CORPUSCULAR VOLUME 95.2 fl (80.0-96.0); RED BLOOD COUNT 3.13 10^6/uL (4.00-5.40); WHITE BLOOD COUNT 8.8 10^3/uL (4.0-10.0)
[2022-10-03 06:20] LABS: PLATELET COUNT, AUTOMATED 91 10^3/uL (150-450)
[2022-10-03] MEDS: FAMOTIDINE 20 MG TAB PO SCH ×3 (09:00→21:00)
[2022-10-03] MEDS: PRENATAL VITAMINS CHEWABLE TABLET PO SCH ×2 (09:00→09:29)
[2022-10-03] MEDS: DOCUSATE SODIUM 100MG CAPSULE PO SCH ×2 (09:29→20:18)
[2022-10-03] MEDS: ENOXAPARIN 40MG/0.4ML SYRINGE (J1650 PER 10MG) SC SCH (09:30)
[2022-10-03 10:00] VITALS: BP 120/58
[2022-10-03] MEDS: IBUPROFEN 800 MG TAB PO SCH ×2 (10:49→18:42)
[2022-10-03 16:30] VITALS: BP 131/62
[2022-10-03] MEDS: LORATADINE 10 MG TAB PO SCH (16:36)
[2022-10-03] MEDS: ACETAMINOPHEN TAB 650MG DOSE (2X325MG) PO PRN ×2 (19:00→23:46)
[2022-10-03 22:00] VITALS: BP 137/81
[2022-10-04 02:45] VITALS: BP 140/80
[2022-10-04] MEDS: IBUPROFEN 800 MG TAB PO SCH ×3 (02:49→19:52)
[2022-10-04] MEDS: DOCUSATE SODIUM 100MG CAPSULE PO SCH ×2 (08:31→20:08)
[2022-10-04] MEDS: FAMOTIDINE 20 MG TAB PO SCH ×2 (08:31→21:00)
[2022-10-04] MEDS: ENOXAPARIN 40MG/0.4ML SYRINGE (J1650 PER 10MG) SC SCH (08:34)
[2022-10-04] MEDS: PRENATAL VITAMINS CHEWABLE TABLET PO SCH (08:35)
[2022-10-04] MEDS ORDERED: MEASLES,MUMPS,RUBELLA VACCINE INJ (MMR-II) SC.IMMUN ONE (09:00)
[2022-10-04 10:00] VITALS: BP 135/81
[2022-10-04] MEDS: LORATADINE 10 MG TAB PO SCH (10:44)
[2022-10-04] MEDS: SIMETHICONE 80MG CHEW TAB PO PRN ×2 (10:45→20:08)
[2022-10-04 14:00] VITALS: BP 134/83
[2022-10-04] MEDS: ACETAMINOPHEN TAB 650MG DOSE (2X325MG) PO PRN (15:55)
[2022-10-04 18:00] VITALS: BP 140/86
[2022-10-04] MEDS: CYCLOBENZAPRINE 5MG TABLET PO SCH (21:35)
[2022-10-04 22:00] VITALS: BP 136/78
[2022-10-05 02:00] VITALS: BP 133/81
[2022-10-05] MEDS: IBUPROFEN 800 MG TAB PO SCH ×2 (03:00→12:54)
[2022-10-05] MEDS ORDERED: IBUPROFEN 800 MG TAB As Ordered ONE (03:52)
[2022-10-05] MEDS: CYCLOBENZAPRINE 5MG TABLET PO SCH ×2 (04:52→12:54)
[2022-10-05] MEDS ORDERED: SIMETHICONE 80MG CHEW TAB As Ordered ONE (04:53)
[2022-10-05] MEDS: SIMETHICONE 80MG CHEW TAB PO PRN (04:54)
[2022-10-05 05:28] VITALS: BP 139/80
[2022-10-05] MEDS ORDERED: ACET1TAB55 PO (07:25)
[2022-10-05] MEDS ORDERED: IBUP80TA PO (07:25)
[2022-10-05 08:34] LABS: HEMATOCRIT 28.6 % (36.0-47.0); HEMOGLOBIN 9.3 g/dl (12.0-15.5); MEAN CORPUSCULAR HEMOGLOBIN 31.4 pg (27.0-33.0); MEAN CORPUSCULAR HGB CONC 32.5 g/dl (32.0-36.5); MEAN CORPUSCULAR VOLUME 96.6 fl (80.0-96.0); RED BLOOD COUNT 2.96 10^6/uL (4.00-5.40); WHITE BLOOD COUNT 7.4 10^3/uL (4.0-10.0)
[2022-10-05 08:53] LABS: PLATELET COUNT, AUTOMATED 83 10^3/uL (150-450)
[2022-10-05] MEDS: FAMOTIDINE 20 MG TAB PO SCH (09:00)
[2022-10-05] MEDS: PRENATAL VITAMINS CHEWABLE TABLET PO SCH (09:00)
[2022-10-05] MEDS: LORATADINE 10 MG TAB PO SCH (09:37)
[2022-10-05] MEDS: DOCUSATE SODIUM 100MG CAPSULE PO SCH (09:37)
[2022-10-05] MEDS: ENOXAPARIN 40MG/0.4ML SYRINGE (J1650 PER 10MG) SC SCH (09:37)
[2022-10-05] MEDS: ACETAMINOPHEN TAB 650MG DOSE (2X325MG) PO PRN (09:39)
== END 2022-10-05 15:55 | disposition home or self-care (01) | DRG 772 ==
LOC: M LDI 05:00 → M OBS 11:20
PROVIDERS: ADMIT Obstetrics & Gynecology; ATTEND Obstetrics & Gynecology
PROC: 10D00Z1 Extraction of Products of Conception, Low, Open Approach (ICD-10-PCS; principal; 2022-10-02 07:30)
DX: O34.211 Maternal care for low transverse scar from previous cesarean delivery (principal); O99.12 Other diseases of the blood and blood-forming organs and certain disorders involving the immune mechanism complicating childbirth; Z3A.36 36 weeks gestation of pregnancy; O99.214 Obesity complicating childbirth; E66.9 Obesity, unspecified; O09.523 Supervision of elderly multigravida, third trimester; D69.6 Thrombocytopenia, unspecified; Z37.0 Single live birth